=== PATIENT | male | born 1990 | race Caucasian/White ===

== ENCOUNTER 2019-10-11 10:44 | Emergency (ER) | payer OTHER, SELFPAY ==
--- NOTE | ~2019-10-11 | XR_ITS ---
EXAMINATION: XR elbow RT 2V DATE: 10/11/2019 11:17 INDICATION: Right elbow injury TECHNIQUE: Anteroposterior and lateral views of the right elbow were obtained. COMPARISON: None. FINDINGS: Alignment is normal. No fracture or joint effusion. Joint spaces are normal. Soft tissues are unremar kable. IMPRESSION: 1. . Negative right elbow radiographs. Reviewed, dictated and finalized at location A.
[2019-10-11 11:06] VITALS: BP 129/82; PULSE 76; RESP 16; TEMP 37.2; O2SAT 97
[2019-10-11] MEDS: KETOROLAC (*BKC) 60 MG/2 ML VIAL IM (11:14)
--- NOTE | 2019-10-11 11:25 | ED.UPPEXIN ---
HPI - Extremity Injury (Upper) General Chief Complaint: Extremity Injury, Upper Stated Complaint: right elbow right leg Source: patient Mode of arrival: ambulatory Limitations: no limitations History of Present Illness HPI narrative: this is a 29-year-old male presents with some right elbow pain with abrasion, has decreased range of motion secondary to pain and swelling there is no vascular compromise has a good strong brachial and radial pulse on the right with no neural vascular compromise. The patient also has some pain in his right jaw area but has good full range of motion with no step-off no crepitus, and some bruising in the right lower extremity with a good range of motion patient denies any other symptoms. No fever chills no shortness of breath no chest and no head injury no loss of consciousness. MD complaint: injury to: right Onset (ago): day(s) Other Extremity Injury: Right: elbow ( abrasion with decreased range of motion) Severity scale (1-10): 6 Relieving factors: immobilization Exacerbating factors: movement of extremity Context: other ( fell off a 4 garcia) Related Data Home Medications Medication Instructions Recorded Confirmed No Home Medications 10/11/19 10/11/19 Allergies Allergy/AdvReac Type Severity Reaction Status Date / Time ampicillin Allergy Unknown Verified 02/02/15 18:08 Review of Systems Review of Systems: All systems reviewed & are unremarkable except as noted in HPI and below PMFSH Past Medical History Medical History Patient denies medical problems Exam Const: General: no acute distress HENMT: Head: normal to inspection Eyes: Conjunctivae: conjunctivae normal Pupils: Equal, round and reactive pupils present Chest: Chest palpation & inspection: normal inspection of the chest Resp: Effort & Inspection: normal respiratory effort Auscultation: clear to auscultation bilaterally Cardio: Rate: regular rate Rhythm: regular rhythm GI: GI Palp: Yes Soft to palpation Course Course Emergency Course: patient received IM Toradol and is currently not up-to-date with his tetanus vaccine. Vital Signs Vital signs: Vital Signs Temperature 37.2 C 10/11/19 11:06 Pulse Rate 76 10/11/19 11:06 Respiratory Rate 16 10/11/19 11:06 Blood Pressure 129/82 10/11/19 11:06 Pulse Oximetry 97 10/11/19 11:06 Temperature 37.2 C 10/11/19 11:06 Pulse Rate 76 10/11/19 11:06 Respiratory Rate 16 10/11/19 11:06 Blood Pressure 129/82 10/11/19 11:06 Pulse Oximetry 97 10/11/19 11:06 Critical Care Time Critical Care Time Critical Care Time: No Discharge Plan Discharge Clinical Impression: Strain of elbow, right Qualifiers: Encounter type: initial encounter Qualified Code(s): S46.911A - Strain of unspecified muscle, fascia and tendon at shoulder and upper arm level, right arm, initial encounter Patient Disposition: Home, Self-Care Condition: Stable Instructions: Antibiotic Form, Muscle Strain (ED) Additional Instructions: Jose wrap to affected elbow, can take [id number] ibuprofen as needed for pain and inflammation, follow-up with primary care physician if symptoms persist or worsen. Prescriptions: No Action No Home Medications RF: 0 Follow-up/Referrals: UNKNOWN,DOCTOR [Primary Care Provider] - Time of Disposition: 11:37
[2019-10-11] MEDS: TETANUS,DIPHTHERIA,AC PERTUSSIS ADULT 0.5 ML (ADACEL) IM (11:35)
== END 2019-10-11 11:50 | disposition home or self-care (01) ==
PROVIDERS: Emergency Provider Emergency Medicine
DX: S46.911A Strain of unspecified muscle, fascia and tendon at shoulder and upper arm level, right arm, initial encounter (principal)
CPT/HCPCS: 73070; 90471; 90715; 96372; 99282; 99283; J1885

== ENCOUNTER 2023-04-08 11:29 | Outpatient (CLI) | payer OTHER, SELFPAY ==
[2023-04-08 11:42] LABS: Basophils Absolute Auto 0.08 K/mm3 (0.00-0.10); Basophils Percent Auto 0.8 % (0.0-1.0); Eosinophils Absolute Auto 0.19 K/mm3 (0.02-0.50); Hematocrit 45.7 % (40.0-54.0); Hemoglobin 15.3 g/dL (14.0-18.0); Immature Granulocyte Absolute 0.04 K/mm3 (0.00-0.00); Immature Granulocyte Percent A 0.4 % (0.0-0.0); Lymphocytes Absolute Auto 2.56 K/mm3 (1.10-4.50); Mean Corpuscular HGB Conc 33.5 g/dL (32.0-36.0); Mean Corpuscular Hemoglobin 29.3 pg (27.0-31.0); Mean Corpuscular Volume 87.5 fL (78.0-102.0); Mean Platelet Volume 8.8 fl (8.7-11.0); Monocytes Absolute Auto 0.61 K/mm3 (0.10-0.90); Monocytes Percent Auto 6.4 % (2.0-11.0); Neutrophils Percent Auto 63.4 % (50.0-70.0); Platelet Count Result 268 K/mm3 (150-420); Red Blood Count 5.22 M/mm3 (4.70-6.10); Red Cell Distribution Width 11.9 % (11.6-14.4); White Blood Count 9.5 K/mm3 (4.8-10.8)
[2023-04-08 13:15] LABS: Alkaline Phosphatase 81 U/L (46-116); Anion Gap 11 mmol/L (8-16); Aspartate Amino Transferase < 10 U/L (15-37); Carbon Dioxide 28 mmol/L (21-32); Chloride 104 mmol/L (98-108); HDL Direct 54 mg/dL (40-60); Potassium 4.3 mmol/L (3.5-5.1); Sodium 143 mmol/L (136-145); Total Protein 7.3 g/dL (6.4-8.2)
[2023-04-08 13:23] LABS: Thyroid Stimulating Hormone Reflex 1.13 u/IU/mL (0.36-3.74)
[2023-04-08 13:36] LABS: Alanine Aminotransferase 53 U/L (16-63); Albumin Level 4.1 g/dL (3.4-5.0); Bilirubin,Total 0.4 mg/dL (0.00-1.00); Blood Urea Nitrogen 12 mg/dL (7-18); Calcium 9.2 mg/dL (8.5-10.1); Cholesterol 203 mg/dL (0-200); Estimated Glomerular Filt Rate > 60; Glucose 90 mg/dL (70-99); LDL Cholesterol Calculated 121 mg/dL (<130); Osmolality Calculated 295 mOsm/kg (285-295); Triglycerides 141 mg/dL (0-150)
== END 2023-04-08 11:30 | disposition home or self-care (01) ==
LOC: CHSLAB 11:32
PROVIDERS: PCP Family Medicine; Visit Provider Family Medicine
DX: R00.2 Palpitations (principal); E03.9 Hypothyroidism, unspecified; Z82.49 Family history of ischemic heart disease and other diseases of the circulatory system
CPT/HCPCS: 36415; 80053; 80061; 84443; 85025

== ENCOUNTER 2023-04-15 09:44 | Outpatient (CLI) | payer OTHER, SELFPAY ==
--- NOTE | 2023-04-17 16:21 | WPDHOLTEREM ---
Holter/Event Monitor Holter/Event Monitor Date of procedure: 04/15/23 Holter/Event Procedure: 48 Hr Holter Monitor Indications: Palpitations Conclusion: 1. 48 hour holter monitor on 04/15/23. 2. Underlying rhythm is sinus rhythm. HR range 43-158 bpm; average HR 76 bpm. HR at 43 bpm was at 05:15. HR at 158 bpm was at 19:10. 3. No premature supraventricular complexes. No supraventricular tachycardia. 4. There are 7 premature ventricular complexes. No ventricular tachycardia. 5. Underlying right bundle branch block. No sinoatrial or atrioventricular blocks. No significant pauses greater than 2 seconds. 6. Patient reports symptom of indigestion which demonstrates sinus rhythm at 73 bpm.
== END 2023-04-15 09:45 | disposition home or self-care (01) ==
LOC: CHSCARD 09:45
PROVIDERS: PCP Family Medicine; Visit Provider Family Medicine
DX: R00.2 Palpitations (principal); I45.10 Unspecified right bundle-branch block
CPT/HCPCS: 93225; 93226